=== PATIENT | female | born 1990 | race Caucasian/White ===

== ENCOUNTER 2017-02-28 06:28 | Emergency (ER) | payer MEDICAID ==
[~2017-02-28] VITALS: Ht 165.1 cm; Wt 63.0 kg
[2017-02-28 06:29] VITALS: Ht 165.1 cm; Wt 63.0 kg
[2017-02-28] MEDS ORDERED: SOD CHLORIDE 0.9% 1,000 ML IV STA (06:44)
[2017-02-28] MEDS ORDERED: ONDANSETRON 4 MG INJ IV STA (06:44)
[2017-02-28 07:08] LABS: ADD SCAN DIFF NO
--- NOTE | 2017-02-28 07:16 | ERD ---
ER Documentation Chief Complaint Date/Time DATE: 02/28/17 TIME: 07:15 Chief Complaint n/v since 1500 after eating at a restaurants HPI 26-year-old otherwise healthy female is here complaining of nausea and vomiting and diarrhea that began yesterday after she ate a cheese steak. She states she has been throwing up since about 3 PM yesterday. Denies any dark or bloody stools or hemoptysis. Denies fever. ROS All systems reviewed and are negative except as per history of present illness. Medications Home Meds Active Scripts Ondansetron (Ondansetron Odt) 4 Mg Tab.rapdis, 4 MG PO Q6H Y for NAUSEA AND/OR VOMITING, #20 TAB Prov:LELO SUAREZ PA-C 02/28/17 Allergies Allergies: Coded Allergies: No Known Allergy (Unverified , 02/28/17) PMhx/Soc History of Surgery: Yes (gallbladder) Anesthesia Reaction: No Hx Neurological Disorder: No Hx Respiratory Disorders: No Hx Cardiac Disorders: No Hx Psychiatric Problems: No Hx Miscellaneous Medical Probl: No Hx Alcohol Use: No Hx Substance Use: No Hx Tobacco Use: No Smoking Status: Never smoker Physical Exam Vitals Vital Signs Date Time Temp Pulse Resp B/P Pulse Ox O2 Delivery O2 Flow Rate FiO2 02/28/17 06:29 98.1 78 20 144/66 99 Physical Exam Const: [] Head: Atraumatic Eyes: Normal Conjunctiva ENT: Normal External Ears, Nose and Mouth. Neck: Full range of motion..~ No meningismus. Resp: Clear to auscultation bilaterally Cardio: Regular rate and rhythm, no murmurs Abd: Soft, non tender, non distended. Normal bowel sounds Skin: No petechiae or rashes Back: No midline or flank tenderness Ext: No cyanosis, or edema Neur: Awake and alert Psych: Normal Mood and Affect Result Diagram: 02/28/17 0651 02/28/17 0651 Results 24 hrs Laboratory Tests Test 02/28/17 06:50 02/28/17 06:51 Urine Color YELLOW Urine Clarity CLEAR Urine pH 6.0 Urine Specific [place] 1.025 Urine Ketones NEGATIVE Urine Nitrite NEGATIVE Urine Bilirubin NEGATIVE Urine Urobilinogen 0.2 E.U./dL Urine Leukocyte Esterase NEGATIVE Urine Hemoglobin NEGATIVE Urine Glucose NEGATIVE% Urine Total Protein NEGATIVE White Blood Count 11.810^3/ul Red Blood Count 4.9410^6/ul Hemoglobin 14.5g/dl Hematocrit 43.8% Mean Corpuscular Volume 88.7fl Mean Corpuscular Hemoglobin 29.4pg Mean Corpuscular Hemoglobin Concent 33.1g/dl Red Cell Distribution Width 12.1% Platelet Count 68315^3/UL Mean Platelet Volume 9.9fl Neutrophils % 92.0% Lymphocytes % 4.9% Monocytes % 2.5% Eosinophils % 0.0% Basophils % 0.2% Nucleated Red Blood Cells % 0.0/100WBC Neutrophils # 10.910^3/ul Lymphocytes # 0.610^3/ul Monocytes # 0.310^3/ul Eosinophils # 0.010^3/ul Basophils # 0.010^3/ul Nucleated Red Blood Cells # 0.010^3/ul Sodium Level 142mmol/L Potassium Level 3.9mmol/L Chloride Level 105mmol/L Carbon Dioxide Level 23mmol/L Anion Gap 18 Blood Urea Nitrogen 19mg/dl Creatinine 0.62mg/dl Glucose Level 145mg/dl Calcium Level 9.8mg/dl Total Bilirubin 0.9mg/dl Direct Bilirubin 0.00mg/dl Indirect Bilirubin 0.9mg/dl Aspartate Amino Transf (AST/SGOT) 27IU/L Alanine Aminotransferase (ALT/SGPT) 27IU/L Alkaline Phosphatase 81IU/L Total Protein 8.8g/dl Albumin 5.0g/dl Globulin 3.80g/dl Albumin/Globulin Ratio 1.31 Lipase 21U/L Current Medications Medications (Trade) Dose Ordered Sig/Shannon Route PRN Reason Start Time Stop Time Status Last Admin Dose Admin Sodium Chloride (NS) 1,000 ml @ 1,000 mls/hr Q1H STAT IV 02/28/17 06:44 02/28/17 07:43 DC 02/28/17 07:02 Ondansetron HCl (Zofran Inj) 4 mg ONCE STAT IV 02/28/17 06:44 02/28/17 06:47 DC 02/28/17 07:02 Procedures/[facility] Patient has nausea and vomiting since she ate a chili cheese steak yesterday. Her GI examination is benign she has no tenderness throughout. Her labs are unremarkable she had significant improvement of her symptoms with IV fluids and Zofran. She is discharged with Zofran. Recommended this patient follow up with her primary care doctor within 48 hours or return to the emergency room for any worsening of symptoms. However this time I do believe there is suitable for outpatient management. I answered all their questions and they agreed with the plan and were discharged home. Departure Diagnosis: Primary Impression: Nausea and vomiting Condition: Stable LELO SUAREZ PA-C February 28, 2017 07:16
[2017-02-28 07:17] LABS: ABNORMAL IP MESSAGE 1; BASOPHILS % 0.2 % (0.0-2.0); HEMATOCRIT 43.8 % (37.0-47.0); HEMOGLOBIN 14.5 g/dl (12.0-16.0); LYMPHOCYTES # 0.6 10^3/ul (0.8-2.9); LYMPHOCYTES % 4.9 % (15.0-51.0); MEAN CORPUSCULAR HEMOGLOBIN 29.4 pg (29.0-33.0); MEAN CORPUSCULAR HGB CONC 33.1 g/dl (32.0-37.0); MEAN CORPUSCULAR VOLUME 88.7 fl (82.0-101.0); MEAN PLATELET VOLUME 9.9 fl (7.4-10.4); MONOCYTE # 0.3 10^3/ul (0.3-0.9); MONOCYTES % 2.5 % (0.0-11.0); NEUTROPHIL # 10.9 10^3/ul (1.6-7.5); PLATELET COUNT 351 10^3/UL (140-415); RED BLOOD COUNT 4.94 10^6/ul (4.20-5.40); RED CELL DISTRIBUTION WIDTH 12.1 % (11.5-14.5); WHITE BLOOD COUNT 11.8 10^3/ul (4.8-10.8)
[2017-02-28 07:30] LABS: BILIRUBIN,INDIRECT 0.9 mg/dl (0-1.1); BILIRUBIN,TOTAL 0.9 mg/dl (0.2-1.3); CALCIUM 9.8 mg/dl (8.4-10.2); CREATININE 0.62 mg/dl (0.44-1.00); POTASSIUM 3.9 mmol/L (3.5-5.1); TOTAL PROTEIN 8.8 g/dl (6.1-8.1)
[2017-02-28 07:31] LABS: ALBUMIN/GLOBULIN RATIO 1.31
[2017-02-28 07:43] LABS: ADD UMIC NO; URINE BILIRUBIN (Dip) NEGATIVE (NEGATIVE); URINE BLOOD (Dip) NEGATIVE (NEGATIVE); URINE COLOR YELLOW (YELLOW); URINE GLUCOSE (Dip) NEGATIVE (NEGATIVE); URINE KETONES (Dip) NEGATIVE (NEGATIVE); URINE LEUKOCYTE ESTERASE (Dip) NEGATIVE (NEGATIVE); URINE NITRITE (Dip) NEGATIVE (NEGATIVE); URINE TOTAL PROTEIN (Dip) NEGATIVE (NEGATIVE); URINE UROBILINOGEN (Dip) 0.2 E.U./dL (0.1-1.0)
[2017-02-28] MEDS ORDERED: ONDA4TAB14 PO (07:47)
== END 2017-02-28 08:13 | disposition home or self-care (01) ==
LOC: FTE 06:28
DX: R11.2 Nausea with vomiting, unspecified (principal)
CPT/HCPCS: 36415; 80053; 81003; 83690; 85025; 96374; J2405; J7030; Z7502

== ENCOUNTER 2017-07-29 11:17 | Emergency (ER) | payer MEDICAID ==
[~2017-07-29] VITALS: Ht 162.6 cm; Wt 67.0 kg
[~2017-07-29 11:17] MED LIST: ONDA4TAB14 PO
[2017-07-29 11:23] VITALS: Ht 162.6 cm; Wt 67.0 kg
[2017-07-29 15:11] LABS: URINE BLOOD (Dip) POC Negative (NEGATIVE)
[2017-07-29 15:16] LABS: BASOPHILS % 0.5 % (0.0-2.0); EOSINOPHILS # 0.1 10^3/ul (0.0-0.5); EOSINOPHILS % 1.4 % (0.0-7.0); HEMATOCRIT 37.9 % (37.0-47.0); HEMOGLOBIN 12.7 g/dl (12.0-16.0); LYMPHOCYTES # 2.3 10^3/ul (0.8-2.9); LYMPHOCYTES % 29.1 % (15.0-51.0); MEAN CORPUSCULAR HEMOGLOBIN 29.9 pg (29.0-33.0); MEAN CORPUSCULAR HGB CONC 33.5 g/dl (32.0-37.0); MEAN CORPUSCULAR VOLUME 89.2 fl (82.0-101.0); MEAN PLATELET VOLUME 9.5 fl (7.4-10.4); MONOCYTE # 0.6 10^3/ul (0.3-0.9); MONOCYTES % 7.3 % (0.0-11.0); NEUTROPHIL # 4.9 10^3/ul (1.6-7.5); NEUTROPHILS % 61.3 % (39.0-77.0); PLATELET COUNT 345 10^3/UL (140-415); RED BLOOD COUNT 4.25 10^6/ul (4.20-5.40); RED CELL DISTRIBUTION WIDTH 11.7 % (11.5-14.5); WHITE BLOOD COUNT 7.9 10^3/ul (4.8-10.8)
--- NOTE | 2017-07-29 15:27 | RADRPT ---
PROCEDURE: OBSTETRICAL ULTRASOUND WITH ENDOVAGINAL IMAGES CLINICAL INDICATION: , vaginal bleeding, pain TECHNIQUE: Multiple sonographic images of the pelvis were obtained utilizing a transabdominal and endovaginal technique. The images were reviewed on a PACS workstation. COMPARISON: None. LMP: 06/05/2017 Gestational age by LMP: 7 weeks, 5 days FINDINGS: A possible intrauterine gestational sac is identified with mean sac diameter of 1.16 cm which would be consistent with a gestational age of 5 weeks, 6 days and an estimated date of delivery of 018 . A possible yolk sac is identified within it, but no pole. There is a hypoechoic and hypovascular lesion adjacent to the gestational sac measuring 1.7 x 1.0 x 1.2 cm consistent with a subchorionic hemorrhage. The right ovary measures 3.3 x 2.0 x 2.0 cm. The left ovary measures 4.8 x 2.6 x 3.0 cm. There is no rmal vascular flow in both ovaries. No significant ovarian lesions are seen. There is mild pelvic free fluid. IMPRESSION: A possible intrauterine gestational sac is identified which would be consistent with a gestational a ge of 5 weeks, 6 days . A possible yolk sac is identified within it, but no pole. Findings ma y be due to an early intrauterine although an ectopic is not excluded. Short-te rm follow-up ultrasound and serial Beta HCG measurements are recommended for further evaluation. RPTAT: EE Physician Cezar Date Time Electronically viewed and signed by Garry Mcmillan Physician on 07/29/2017 15:27 /
--- NOTE | 2017-07-29 15:34 | ERD ---
ER Documentation Chief Complaint Date/Time DATE: 07/29/17 TIME: 15:24 Chief Complaint 4 WEEK PERGNANT WITH PELVIC PAIN HPI 26 y/o A0 at 7wk7d by LMP 06/05/2017. Comes complaining of mild pelvic pain , 2/10, intermittent, sharp, on RLQ without radiation. Denies fever, no vaginal bleeding, no vaginal discharge, no dysuria. No history of trauma. No care ROS All systems reviewed and are negative except as per history of present illness. Medications Home Meds Active Scripts Ondansetron (Ondansetron Odt) 4 Mg Tab.rapdis, 4 MG PO Q6H Y for NAUSEA AND/OR VOMITING, #20 TAB Prov:LELO SUAREZ PA-C 02/28/17 Allergies Allergies: Coded Allergies: No Known Allergy (Unverified , 02/28/17) PMhx/Soc History of Surgery: Yes (cholecystectomy ) Anesthesia Reaction: No Hx Neurological Disorder: No Hx Respiratory Disorders: No Hx Cardiac Disorders: No Hx Psychiatric Problems: No Hx Miscellaneous Medical Probl: No Hx Alcohol Use: No Hx Substance Use: No Hx Tobacco Use: No Smoking Status: Unknown if ever smoked Physical Exam Vitals Vital Signs Date Time Temp Pulse Resp B/P Pulse Ox O2 Delivery O2 Flow Rate FiO2 07/29/17 11:23 99.0 78 18 116/56 99 Physical Exam Const: Alert, oriented, in no distress Head: Atraumatic Eyes: Normal Conjunctiva ENT: Normal External Ears, Nose and Mouth. Neck: Full range of motion..~ No meningismus. Resp: Clear to auscultation bilaterally Cardio: Regular rate and rhythm, no murmurs Abd: Soft, non tender, non distended. Normal bowel sounds. Pelvic exam deferred Result Diagram: 07/29/17 1443 07/29/17 1443 Results 24 hrs Laboratory Tests Test 07/29/17 14:43 07/29/17 15:20 White Blood Count 7.910^3/ul Red Blood Count 4.2510^6/ul Hemoglobin 12.7g/dl Hematocrit 37.9% Mean Corpuscular Volume 89.2fl Mean Corpuscular Hemoglobin 29.9pg Mean Corpuscular Hemoglobin Concent 33.5g/dl Red Cell Distribution Width 11.7% Platelet Count 93383^3/UL Mean Platelet Volume 9.5fl Neutrophils % 61.3% Lymphocytes % 29.1% Monocytes % 7.3% Eosinophils % 1.4% Basophils % 0.5% Nucleated Red Blood Cells % 0.0/100WBC Neutrophils # 4.910^3/ul Lymphocytes # 2.310^3/ul Monocytes # 0.610^3/ul Eosinophils # 0.110^3/ul Basophils # 0.010^3/ul Nucleated Red Blood Cells # 0.010^3/ul Sodium Level 142mmol/L Potassium Level 4.1mmol/L Chloride Level 106mmol/L Carbon Dioxide Level 24mmol/L Anion Gap 16 Blood Urea Nitrogen 10mg/dl Creatinine 0.60mg/dl Glucose Level 73mg/dl Calcium Level 9.4mg/dl Total Bilirubin 0.4mg/dl Direct Bilirubin 0.00mg/dl Indirect Bilirubin 0.4mg/dl Aspartate Amino Transf (AST/SGOT) 23IU/L Alanine Aminotransferase (ALT/SGPT) 38IU/L Alkaline Phosphatase 64IU/L Total Protein 7.8g/dl Albumin 4.6g/dl Globulin 3.20g/dl Albumin/Globulin Ratio 1.43 Beta HCG, Quantitative 70191.0mIU/ml Bedside Urine pH (LAB) 6.0 Bedside Urine Protein (LAB) Negative Bedside Urine Glucose (UA) Negative Bedside Urine Ketones (LAB) Negative Bedside Urine Blood Negative Bedside Urine Nitrite (LAB) Negative Bedside Urine Leukocyte Esterase (L Negative Procedures/MDM First trimester abdominal pain: differential includes: Threatened , incomplete vs complete , ectopic , UTI, appendicitis Plan: - [facility] [place] - [place]: O neg - US: A possible intrauterine gestational sac is identified which would be consistent with a gestational age of 5 weeks, 6 days . A possible yolk sac is identified within it, but no pole. Findings may be due to an early intrauterine although an ectopic is not excluded. Short- term follow-up ultrasound and serial Beta HCG measurements are recommended for further evaluation. Currently, the patient is hemodynamically stable. The patient was instructed regarding the outcomes and the potential complications like severe bleeding and . We recommend f/u with PMD in 2 days. If the doctor is unavailable and the patient presents severe bleeding or pain, she was instructed to return to the hospital. ABORH: ONeg No vaginal bleeding, no rhogam indicated. Departure Condition: Stable ROBERT JACOBS MD Jul 29, 2017 15:34
[2017-07-29 15:38] LABS: ALBUMIN 4.6 g/dl (3.3-4.9); ALBUMIN/GLOBULIN RATIO 1.43; BILIRUBIN,INDIRECT 0.4 mg/dl (0-1.1); BILIRUBIN,TOTAL 0.4 mg/dl (0.2-1.3); CALCIUM 9.4 mg/dl (8.4-10.2); CREATININE 0.6 mg/dl (0.44-1.00); POTASSIUM 4.1 mmol/L (3.5-5.1); TOTAL PROTEIN 7.8 g/dl (6.1-8.1)
[2017-07-29 17:57] LABS: ADD UMIC NO; UR ASCORBIC ACID NEGATIVE (NEGATIVE); UR BILIRUBIN (Dip) NEGATIVE (NEGATIVE); UR BLOOD (Dip) NEGATIVE (NEGATIVE); UR CLARITY CLEAR (CLEAR); UR COLOR STRAW (YELLOW); UR GLUCOSE (Dip) NEGATIVE (NEGATIVE); UR KETONES (Dip) NEGATIVE (NEGATIVE); UR LEUKOCYTE ESTERASE (Dip) NEGATIVE Leu/ul (NEGATIVE); UR NITRITE (Dip) NEGATIVE (NEGATIVE); UR SPECIFIC GRAVITY (Dip) 1.006 (1.003-1.030); UR TOTAL PROTEIN (Dip) NEGATIVE (NEGATIVE); UR UROBILINOGEN (Dip) NEGATIVE (NEGATIVE)
== END 2017-07-29 16:32 | disposition home or self-care (01) ==
LOC: FTE 11:17
DX: O26.891 Other specified pregnancy related conditions, first trimester (principal); R10.2 Pelvic and perineal pain; Z3A.01 Less than 8 weeks gestation of pregnancy
CPT/HCPCS: 76801; 76817; 80053; 81003; 84702; 85025; 86900; 86901; Z7502

== ENCOUNTER 2017-10-07 13:50 | Emergency (ER) | payer MEDICAID ==
[~2017-10-07] VITALS: Ht 162.6 cm; Wt 61.0 kg
[2017-10-07 14:00] VITALS: Ht 162.6 cm; Wt 61.0 kg
[2017-10-07] MEDS ORDERED: ONDANSETRON 4 MG INJ IV STA (16:12)
[2017-10-07] MEDS ORDERED: SOD CHLORIDE 0.9% 1,000 ML IV ONE (16:30)
[2017-10-07 16:43] LABS: ABNORMAL IP MESSAGE 1; BASOPHILS % 0.2 % (0.0-2.0); HEMATOCRIT 38.2 % (37.0-47.0); HEMOGLOBIN 12.7 g/dl (12.0-16.0); LYMPHOCYTES # 0.5 10^3/ul (0.8-2.9); LYMPHOCYTES % 3.6 % (15.0-51.0); MEAN CORPUSCULAR HEMOGLOBIN 29.3 pg (29.0-33.0); MEAN CORPUSCULAR HGB CONC 33.2 g/dl (32.0-37.0); MEAN CORPUSCULAR VOLUME 88.2 fl (82.0-101.0); MEAN PLATELET VOLUME 9.6 fl (7.4-10.4); MONOCYTE # 0.4 10^3/ul (0.3-0.9); MONOCYTES % 2.9 % (0.0-11.0); NEUTROPHIL # 13.7 10^3/ul (1.6-7.5); NEUTROPHILS % 92.6 % (39.0-77.0); PLATELET COUNT 382 10^3/UL (140-415); RED BLOOD COUNT 4.33 10^6/ul (4.20-5.40); RED CELL DISTRIBUTION WIDTH 12.2 % (11.5-14.5); WHITE BLOOD COUNT 14.8 10^3/ul (4.8-10.8)
[2017-10-07 16:49] LABS: POSITIVE DIFF @See below
[2017-10-07 16:57] LABS: ADD UMIC NO; UR ASCORBIC ACID NEGATIVE (NEGATIVE); UR BACTERIA FEW /HPF (NONE SEEN); UR BILIRUBIN (Dip) NEGATIVE (NEGATIVE); UR BLOOD (Dip) NEGATIVE (NEGATIVE); UR CLARITY SLIGHTLY CLOUDY (CLEAR); UR COLOR YELLOW (YELLOW); UR GLUCOSE (Dip) NEGATIVE (NEGATIVE); UR KETONES (Dip) 2+ mg/dL (NEGATIVE); UR LEUKOCYTE ESTERASE (Dip) NEGATIVE Leu/ul (NEGATIVE); UR MUCUS FEW /HPF (NONE SEEN); UR NITRITE (Dip) NEGATIVE (NEGATIVE); UR RBC 1 /HPF (0-5); UR SPECIFIC GRAVITY (Dip) 1.027 (1.003-1.030); UR SQUAMOUS EPITHELIAL CELL FEW /HPF (FEW); UR TOTAL PROTEIN (Dip) NEGATIVE (NEGATIVE); UR UROBILINOGEN (Dip) NEGATIVE (NEGATIVE)
--- NOTE | 2017-10-07 16:58 | RADRPT ---
PROCEDURE: US OB. CLINICAL INDICATION: Abdominal pain. TECHNIQUE: Multiple sonographic images of the pelvis were obtained. Transabdominal imaging only wa s performed. The images were reviewed on a PACS workstation. COMPARISON: Pelvic ultrasound dated 07/29/2017 FINDINGS: The cervix is closed with a length of 3.9 cm. There is a single viable intrauterine gestation. Cardiac activity is present with a heart rate of 1 56 bpm. There is a variable presentation. Measurements were made in order to determine age. The results are as follows: BPD = 3.21 cm HC = 11.97 cm AC = 9.93 cm FL = 1.95 cm Estimated gestational age of approximately 16 weeks 0 days. The estimated date of delivery is 03/24/2018. The EFW = 138.33 g, at the 43rd percentile. The placenta is posterior, grade 0. There is no evidence for an abruption or placenta previa. There is a normal amount of amniotic fluid with an MVP= 4.4 cm. IMPRESSION: 1. Single viable intrauterine gestation of approximately 16 weeks 0 days. 2. The estimated date of delivery is 03/24/2018. RPTAT: HLBP .Fam Cortes MD, Date Time Electronically viewed and signed by .Fam Cortes MD, MD on 10/07/2017 16:57 .P/
[2017-10-07 16:59] LABS: ALBUMIN 4.6 g/dl (3.3-4.9); ALBUMIN/GLOBULIN RATIO 1.27; BILIRUBIN,INDIRECT 0.6 mg/dl (0-1.1); BILIRUBIN,TOTAL 0.6 mg/dl (0.2-1.3); CALCIUM 9.4 mg/dl (8.4-10.2); CREATININE 0.58 mg/dl (0.44-1.00); POTASSIUM 3.3 mmol/L (3.5-5.1); TOTAL PROTEIN 8.2 g/dl (6.1-8.1)
[2017-10-07] MEDS ORDERED: ONDA-43 PO (17:03)
--- NOTE | 2017-10-07 17:11 | ERD ---
ER Documentation Chief Complaint Chief Complaint vomiting since 0100 am , 16 weeks preg , no vag bleed HPI This is a 27-year-old female presents to the ER for nausea vomiting and diarrhea that started at 1:00 this morning. Patient is currently 16 weeks . She denies any vaginal bleeding, vaginal discharge or pain. A0. Patient denies any urinary frequency or dysuria. ROS 12 point review of systems was done, all negative except per HPI. Medications Home Meds Active Scripts Ondansetron Hcl* (Zofran*) 4 Mg Tab, 4 MG PO Q4H Y for NAUSEA AND OR VOMITING, # 15 TAB Prov:MATHEW WILBURN 10/07/17 Ondansetron (Ondansetron Odt) 4 Mg Tab.rapdis, 4 MG PO Q6H Y for NAUSEA AND/OR VOMITING, #20 TAB Prov:LELO SUAREZ PA-C 02/28/17 Allergies Allergies: Coded Allergies: No Known Allergy (Unverified , 02/28/17) PMhx/Soc Medical and Surgical Hx: pt denies Medical Hx History of Surgery: Yes (cholecystectomy ) Anesthesia Reaction: No Hx Neurological Disorder: No Hx Respiratory Disorders: No Hx Cardiac Disorders: No Hx Psychiatric Problems: No Hx Miscellaneous Medical Probl: No Hx Alcohol Use: No Hx Substance Use: No Hx Tobacco Use: No Smoking Status: Never smoker Physical Exam Vitals Vital Signs Date Time Temp Pulse Resp B/P Pulse Ox O2 Delivery O2 Flow Rate FiO2 10/07/17 14:00 97.9 94 18 105/67 99 Physical Exam GENERAL: The patient is well developed and appropriate for usual state of health , in no apparent distress. HEENT: Atraumatic.lips are dry, but moist oral mucosa CHEST: Clear to auscultation bilaterally. There are no rales, wheezes or rhonchi. HEART: Regular rate and rhythm. No murmurs, clicks, rubs or gallops. ABDOMEN: Soft, nontender and nondistended. Good bowel sounds. No rebound or guarding. No gross peritonitis. No gross organomegaly or masses. No Taylor sign or McBurney point tenderness. BACK: No midline or flank tenderness. NEURO: Alert and oriented. Cranial nerves II through XII are intact. Result Diagram: 10/07/17 1625 10/07/17 1625 Results 24 hrs Laboratory Tests Test 10/07/17 16:25 White Blood Count 14.810^3/ul Red Blood Count 4.3310^6/ul Hemoglobin 12.7g/dl Hematocrit 38.2% Mean Corpuscular Volume 88.2fl Mean Corpuscular Hemoglobin 29.3pg Mean Corpuscular Hemoglobin Concent 33.2g/dl Red Cell Distribution Width 12.2% Platelet Count 54894^3/UL Mean Platelet Volume 9.6fl Neutrophils % 92.6% Lymphocytes % 3.6% Monocytes % 2.9% Eosinophils % 0.0% Basophils % 0.2% Nucleated Red Blood Cells % 0.0/100WBC Neutrophils # 13.710^3/ul Lymphocytes # 0.510^3/ul Monocytes # 0.410^3/ul Eosinophils # 0.010^3/ul Basophils # 0.010^3/ul Nucleated Red Blood Cells # 0.010^3/ul Urine Color YELLOW Urine Clarity SLIGHTLY CLOUDY Urine pH 5.0 Urine Specific [place] 1.027 Urine Ketones 2+mg/dL Urine Nitrite NEGATIVEmg/dL Urine Bilirubin NEGATIVEmg/dL Urine Urobilinogen NEGATIVEmg/dL Urine Leukocyte Esterase NEGATIVELeu/ul Urine Microscopic RBC 1/HPF Urine Microscopic WBC 3/HPF Urine Squamous Epithelial Cells FEW/HPF Urine Bacteria FEW/HPF Urine Mucus FEW/HPF Urine Hemoglobin NEGATIVEmg/dL Urine Glucose NEGATIVEmg/dL Urine Total Protein NEGATIVEmg/dl Sodium Level 140mmol/L Potassium Level 3.3mmol/L Chloride Level 104mmol/L Carbon Dioxide Level 23mmol/L Anion Gap 16 Blood Urea Nitrogen 11mg/dl Creatinine 0.58mg/dl Glucose Level 84mg/dl Calcium Level 9.4mg/dl Total Bilirubin 0.6mg/dl Direct Bilirubin 0.00mg/dl Indirect Bilirubin 0.6mg/dl Aspartate Amino Transf (AST/SGOT) 33IU/L Alanine Aminotransferase (ALT/SGPT) 45IU/L Alkaline Phosphatase 67IU/L Total Protein 8.2g/dl Albumin 4.6g/dl Globulin 3.60g/dl Albumin/Globulin Ratio 1.27 Current Medications Medications (Trade) Dose Ordered Sig/Shannon Route PRN Reason Start Time Stop Time Status Last Admin Dose Admin Ondansetron HCl 4 mg 4 mg ONCE STAT IV 10/07/17 16:12 10/07/17 16:14 DC 10/07/17 16:24 Sodium Chloride (NS) 1,000 ml @ 1,000 mls/hr Q1H ONCE IV 10/07/17 16:30 10/07/17 17:29 10/07/17 16:24 [place] [id number] Radiology Main Line: [phone] DIAGNOSTIC IMAGING REPORT Patient: MARK QUILES : 1990 Age: 27 Sex: F MR #: [id number] DOS: 10/07/17 0000 Ordering MD: MATHEW WILBURN PA-C Location: [facility] Room/Bed: PROCEDURE: US OB. CLINICAL INDICATION: Abdominal pain. TECHNIQUE: Multiple sonographic images of the pelvis were obtained. Transabdominal imaging only was performed. The images were reviewed on a PACS workstation. COMPARISON: Pelvic ultrasound dated 07/29/2017 FINDINGS: The cervix is closed with a length of 3.9 cm. There is a single viable intrauterine gestation. Cardiac activity is present with a heart rate of 156 bpm. There is a variable presentation. Measurements were made in order to determine age. The results are as follows: BPD = 3.21 cm HC = 11.97 cm AC = 9.93 cm FL = 1.95 cm Estimated gestational age of approximately 16 weeks 0 days. The estimated date of delivery is 03/24/2018. The EFW = 138.33 g, at the 43rd percentile. The placenta is posterior, grade 0. There is no evidence for an abruption or placenta previa. There is a normal amount of amniotic fluid with an MVP= 4.4 cm. IMPRESSION: 1. Single viable intrauterine gestation of approximately 16 weeks 0 days. 2. The estimated date of delivery is 03/24/2018. RPTAT: HLBP .Fam Cortes MD, Date Time Electronically viewed and signed by .Fam Cortes MD, MD on 10/07/2017 16:57 .P/ CC: MATHEW WILBURN Procedures/MDM This 27-year-old female presents to the ER with nausea vomiting and diarrhea. Patient does not have any significant electrolyte abnormalities. She is afebrile and well-appearing. Patient was given fluids in the ER and she did not have any episodes of vomiting. Ultrasound of the baby was normal. Patient does not have any vaginal bleeding or pelvic pain. Patient is stable for outpatient follow-up this is likely viral in etiology. Suspicion for acute abdomen is low, patient's abdominal examination is benign and she does not complain of abdominal pain. Patient will be sent home with Stephon. She is to follow-up with her primary care doctor within 1-2 days return to ER sooner if symptoms worsen. My medical decision making was shared with the patient she understands and agrees with plan. Departure Diagnosis: Primary Impression: Vomiting and diarrhea Condition: Stable Patient Instructions: Self-Care for Vomiting and Diarrhea Additional Instructions: Call your primary care doctor TOMORROW for an appointment during the next 1-2 days.See the doctor sooner or return here if your condition worsens before your appointment time. MATHEW WILBURN Oct 07, 2017 17:11
[2017-10-07 19:31] VITALS: BP 109/62; PULSE 81; RESP 18; TEMP 98.2
== END 2017-10-07 19:32 | disposition home or self-care (01) ==
LOC: FTE 13:50
DX: O21.9 Vomiting of pregnancy, unspecified (principal); O99.89 Other specified diseases and conditions complicating pregnancy, childbirth and the puerperium; R19.7 Diarrhea, unspecified; Z3A.16 16 weeks gestation of pregnancy
CPT/HCPCS: 76805; 80053; 81001; 85025; 96374; J2405; J7030; Z7502; 81003